=== PATIENT | female | born 1970 | race Two or more races ===

== ENCOUNTER 2024-11-17 10:09 | Emergency (ER) | payer OTHER ==
[~2024-11-17] VITALS: Ht 154.9 cm; Wt 70.8 kg
[2024-11-17] MEDS ORDERED: VALSARTAN160 MG (10:26)
[2024-11-17] MEDS ORDERED: AMLODIPINE BESYL5 MG (10:26)
[2024-11-17] MEDS ORDERED: ORPHENADRINE CITRATE 30 MG/ML AMPUL IM ONE (10:45)
[2024-11-17 10:54] LABS: BASO % 0.3 % (0.1-1.2); EOS # 0.10 (0.04-0.54); EOS % 1.6 % (0.7-7.0); LYMPH # 2.27 (1.18-3.74); LYMPH % 36.7 % (19.3-53.1); MEAN PLATELET VOLUME 9.40 fl (9.4-12.4); MONO # 0.50 (0.24-0.82); MONO % 8.1 % (4.7-12.5); NEUT # 3.28 (1.56-6.13); NEUT % 53.0 % (34.0-71.1); RED CELL DISTRIBUTION WIDTH 11.9 % (11.6-14.4)
[2024-11-17 11:17] LABS: ALT/SGPT 39.0 U/L (12-78); AST/SGOT 19.0 U/L (15-37); BILIRUBIN TOTAL 0.3 mg/dL (0.3-1.2); BUN CREA RATIO 12.0 (7.0-25.0); CREATININE SERUM 0.89 mg/dL (0.55-1.02); GFR 66.09; GLOBULINA 3.9 G/DL (2.4-3.5); GLUCOSE FASTING 126.0 mg/dL (65-100); OSMOLALITY SERUM 284.0 MOSM/KG (275-295)
[2024-11-17 11:28] LABS: COVID-19 AG NEGATIVE (NEGATIVE)
[2024-11-17 11:59] LABS: URINE APPEARANCE Clear; URINE BILIRRUBIN Negative (NEGATIVE); URINE BLOOD Negative; URINE COLOR Yellow; URINE GLUCOSE Negative (NEGATIVE); URINE KETONE Negative (NEGATIVE); URINE LEUKOCYTE Negative; URINE NITRATE Negative; URINE PROTEIN Negative (NEGATIVE); URINE UROBILINOGEN 0.2 E.U./dl
[2024-11-17 12:02] LABS: URINE WBC 1.8 uL (0.0-23.2)
[2024-11-17 12:05] LABS: URINE BACTERIA 2.3 uL (0.0-1933); URINE CAST 0.00 uL (0.0-1.40); URINE EPITHELIAL CELLS 1.0 uL (0.0-38.8); URINE RBC 0.8 uL (0.0-20.8)
[2024-11-17] MEDS ORDERED: NORFLEX100MG PO (12:54)
== END 2024-11-17 12:58 | disposition home or self-care (01) ==
LOC: ER 10:09
PROVIDERS: General Practice
DX: R10.2 Pelvic and perineal pain (principal); R10.9 Unspecified abdominal pain; Z20.822 Contact with and (suspected) exposure to COVID-19; I10 Essential (primary) hypertension; Z88.6 Allergy status to analgesic agent